=== PATIENT | male | born 1990 | race Caucasian/White ===

== ENCOUNTER 2018-02-17 21:39 | Emergency (ER) | payer BC ==
[~2018-02-17] VITALS: Ht 208.3 cm; Wt 124.7 kg
[2018-02-17] MEDS ORDERED: LIDOCAINE 2%/EPI 1:100,000 20 ML VIAL. IJ ONE (22:00)
--- NOTE | 2018-02-17 22:27 | PHYS DOC ---
Adult General Chief Complaint Chief Complaint: LACERATION/AVULSION HPI HPI Patient is a 27-year-old male presenting to the emergency department for evaluation of laceration to dorsal left hand sustained shortly prior to arrival. Patient was trying to open a [employer] gun with a pocket knife and slipped and cut his left hand. He has no weakness numbness or tingling in his tetanus is up-to-date. Review of Systems Review of Systems Constitutional: Denies fever or chills [] Integument:+ laceration Neurologic: Denies focal weakness or sensory changes [] All other systems were reviewed and found to be within normal limits, except as documented in this note. Current Medications Current Medications Current Medications Medications (Trade) Dose Ordered Sig/Serenity Start Time Stop Time Status Last Admin Dose Admin Lidocaine/ Epinephrine (Xylocaine 2%-Epi 1:100,000) 20 ml 1X ONCE 02/17/18 22:00 02/17/18 22:18 DC Allergies Allergies Allergies Coded Allergies Type Severity Reaction Last Updated Verified No Known Drug Allergies 02/17/18 No Physical Exam Physical Exam Constitutional: Well developed, well nourished, no acute distress, non-toxic appearance. [] Extremities: + Left dorsal hand over the fifth metacarpal there is approximate 3 cm laceration that is open however there is no exposed tendon or foreign body after being examined in a bloodless field. He has intact strength in flexion extension abduction and abduction. Normal sensation distally with normal cap refill. Neurologic: Alert and oriented X 3, normal motor function, normal sensory function, no focal deficits noted. [] EKG EKG [] Radiology/Procedures Radiology/Procedures Indication: [L dorsal hand laceration] Procedure: The patient was placed in the appropriate position and anesthesia around the approximately 3 mL of 2% lidocaine with epinephrine. The area was then cleansed and ear Gatorade copiously. The laceration was closed with 6 4-0 nylon sutures. Wound dressed with 4 x 4's and put in splint Total repaired wound length: 3 cm The patient tolerated the procedure well Complications: None Course & Med Decision Making Course & Med Decision Making Patient with laceration sustained shortly prior to arrival and was closed with medications. No tendon or foreign body involvement. He was told to follow in 5 -7 days and come back sooner with any new worsening pain redness swelling or other general concerns. Patient aware and agreeable with plan and verbalized understanding of the above instructions. Dragon Disclaimer Dragon Disclaimer This electronic medical record was generated, in whole or in part, using a voice recognition dictation system. Departure Departure: Impression: Primary Impression: Hand laceration Disposition: 01 HOME, SELF-CARE Condition: STABLE Patient Instructions: Laceration Care, Adult Problem Qualifiers Primary Impression: Hand laceration Encounter type: initial encounter Foreign body presence: without foreign body Laterality: left Qualified Codes: S61.412A - Laceration without foreign body of left hand, initial encounter KIKI CHAVEZ DO Feb 17, 2018 22:27
[2018-02-17 22:35] VITALS: BP 122/72
== END 2018-02-17 22:40 | disposition home or self-care (01) ==
LOC: ER 21:39
DX: S61.412A Laceration without foreign body of left hand, initial encounter (principal); W26.0XXA Contact with knife, initial encounter; Y93.89 Activity, other specified; Y99.8 Other external cause status; Y92.89 Other specified places as the place of occurrence of the external cause
CPT/HCPCS: 12002; 99283